=== PATIENT | male | born 1945 | race Caucasian/White ===

== ENCOUNTER 2020-11-01 13:36 | Day surgery (SDC) | payer MEDICARE, BC ==
[~2020-11-01 13:36] MED LIST: Bupivacaine PF 0.75% SDV 10 ML ONE; CEFAZOLIN 1 GM VIAL ONE; Lidocaine 1% PF 5 ML VIAL ONE; Lidocaine 4% PF 5 ML AMP ONE; Maxitrol 0.1% Opth Oint 3.5 GM TUBE ONE; PROPOFOL 200 MG/20 ML VIAL ONE; Triamcinolone 40 MG/ML VIAL ONE
[2020-11-01] MEDS ORDERED: EPINEPHrine 0.3 MG in Ophthalmic Irrigation Solution 500 ML IRR SCH (14:00)
[2020-11-01] MEDS ORDERED: Midazolam HCl 2 mg/2 ml Vial ONE (14:03)
[2020-11-01] MEDS ORDERED: Fentanyl 100 MCG/2 ML VIAL ONE (14:03)
[2020-11-01] MEDS ORDERED: Cyclopentolate 1% Opth Drop 2 ML BOT ONE (14:13)
[2020-11-01] MEDS ORDERED: Phenylephrine 2.5% Ophth Soln 5 ML BOT ONE (14:13)
[2020-11-01] MEDS ORDERED: hydrALAZINE 20 MG/ML VIAL ONE (17:04)
== END 2020-11-01 17:45 | disposition home or self-care (01) ==
LOC: SDC 13:36
PROVIDERS: ATTEND Ophthalmology Retina Specialist
PROC: 08943ZZ Drainage of Right Vitreous, Percutaneous Approach (ICD-10-PCS; principal; 2020-11-01)
DX: H33.011 Retinal detachment with single break, right eye (principal); Z88.4 Allergy status to anesthetic agent
CPT/HCPCS: 67025; J0171; J0360; J0690; J2250; J2704; J3010; J3301; J3490

== ENCOUNTER 2025-03-25 09:09 | Day surgery (SDC) | payer MEDICARE, BC ==
[2025-03-24 09:26] VITALS: BMI 28.7
[~2025-03-25 09:09] MED LIST changes: -Bupivacaine PF 0.75% SDV 10 ML ONE; -CEFAZOLIN 1 GM VIAL ONE; +EPINEPHrine 0.3 MG in Ophthalmic Irrigation Solution 500 ML IRR SCH; -Lidocaine 1% PF 5 ML VIAL ONE; -Lidocaine 4% PF 5 ML AMP ONE; -Maxitrol 0.1% Opth Oint 3.5 GM TUBE ONE; -PROPOFOL 200 MG/20 ML VIAL ONE; -Triamcinolone 40 MG/ML VIAL ONE
[2025-03-25] MEDS ORDERED: Cyclopentolate 1% Opth Drop 2 ML BOT ONE (10:52)
[2025-03-25] MEDS ORDERED: Maxitrol 0.1% Opth Oint 3.5 GM TUBE ONE ×2 (11:38→13:18)
[2025-03-25] MEDS ORDERED: PROPOFOL 20 ML ONE (11:40)
[2025-03-25] MEDS ORDERED: Lidocaine 1% PF 5 ML VIAL ONE ×2 (11:40→13:18)
[2025-03-25] MEDS ORDERED: Ondansetron PF 4 MG/2 ML Vial ONE (13:08)
[2025-03-25] MEDS ORDERED: Lidocaine 4% PF 5 ML AMP ONE (13:18)
[2025-03-25] MEDS ORDERED: CEFAZOLIN 1 GM VIAL ONE (13:18)
[2025-03-25] MEDS ORDERED: Acetylcholine 20 MG/2 ML VIAL (OR CHARGE) ONE (13:18)
== END 2025-03-25 16:17 | disposition home or self-care (01) ==
LOC: SDC 09:09
PROVIDERS: ATTEND Ophthalmology Retina Specialist
PROC: 08T43ZZ Resection of Right Vitreous, Percutaneous Approach (ICD-10-PCS; principal; 2025-03-25)
PROC: 08PJ3JZ Removal of Synthetic Substitute from Right Lens, Percutaneous Approach (ICD-10-PCS; 2025-03-25)
PROC: 08RJ3JZ Replacement of Right Lens with Synthetic Substitute, Percutaneous Approach (ICD-10-PCS; 2025-03-25)
DX: T85.22XA Displacement of intraocular lens, initial encounter (principal); Z88.4 Allergy status to anesthetic agent; Y83.1 Surgical operation with implant of artificial internal device as the cause of abnormal reaction of the patient, or of later complication, without mention of misadventure at the time of the procedure
CPT/HCPCS: 66986; 67036; J0166; J0690; J1100; J2405; J2704; J3301; J3490; V2632